=== PATIENT | female | born 1985 | race Caucasian/White ===

== ENCOUNTER 2019-01-07 14:11 | Emergency (ER) | payer BC, OTHER ==
[~2019-01-07] VITALS: Ht 157.5 cm; Wt 73.7 kg
[~2019-01-07 14:11] MED LIST: D-ME118S24 PO; PROAIR
[2019-01-07 14:23] VITALS: BP 131/70; PULSE 63; RESP 16; Ht 157.5 cm; Wt 73.7 kg
== END 2019-01-07 14:40 | disposition home or self-care (01) ==
LOC: E/R 14:11
DX: J45.909 Unspecified asthma, uncomplicated (principal); F17.210 Nicotine dependence, cigarettes, uncomplicated
CPT/HCPCS: 99282